=== PATIENT | female | born 2000 | race Caucasian/White ===

== ENCOUNTER 2020-12-11 22:35 | Emergency (ER) | payer MEDICAID ==
[2020-12-11] MEDS ORDERED: Sodium Chloride 0.9% 10 ML Syringe FLUSH PRN (22:51)
[2020-12-11] MEDS ORDERED: Ondansetron 4 MG/2 ML SDV IVPUSH STA (22:58)
[2020-12-11] MEDS ORDERED: Ketorolac 30 MG/ML SDV IVPUSH STA (22:58)
[2020-12-11] MEDS ORDERED: Sodium Chloride 0.9% 1,000 ML IV SCH (23:00)
[2020-12-11] MEDS ORDERED: Iopamidol 755 Mg/ML 100 ML Bottle IV ONE (23:59)
[2020-12-12] MEDS ORDERED: Ondansetron 4 MG/2 ML SDV IV PRN (01:03)
[2020-12-12] MEDS ORDERED: Morphine 2 MG/ML SYRINGE IVPUSH PRN (01:03)
[2020-12-12] MEDS ORDERED: Sodium Chloride 0.9% 1,000 ML IV SCH (01:15)
--- NOTE | 2020-12-12 01:29 | EDM.PDOC ---
ED HPI GENERAL MEDICAL PROBLEM - General Stated Complaint: ABDOMINAL PAIN Time Seen by Provider: 12/11/20 23:35 Source of Information: Reports: Patient History Limitations: Reports: No Limitations - History of Present Illness INITIAL COMMENTS - FREE TEXT/NARRATIVE: Patient presented to the ED because of abdominal pain over the LLQ and RLQ. The pain is sharp,8/10, with associated nausea but no vomiting. She also c/o dysuria x 1 days. there is no fever, chills, cough/cold. There is no diarrhea or constipation. - Related Data Allergies Allergy/AdvReac Type Severity Reaction Status Date / Time No Known Allergies Allergy Verified 12/12/20 00:06 Home Meds: Home Meds NK [No Known Home Meds] 12/12/20 [History] ED ROS GENERAL - Review of Systems Review Of Systems: See Below Constitutional: Reports: No Symptoms HEENT: Reports: No Symptoms Respiratory: Reports: No Symptoms Cardiovascular: Reports: No Symptoms Endocrine: Reports: No Symptoms GI/Abdominal: Reports: Abdominal Pain, Nausea Musculoskeletal: Reports: No Symptoms Skin: Reports: No Symptoms Neurological: Reports: No Symptoms Psychiatric: Reports: No Symptoms Hematologic/Lymphatic: Reports: No Symptoms ED EXAM, GI/ABD - Physical Exam Exam: See Below Exam Limited By: No Limitations General Appearance: Alert, No Apparent Distress Ears: Normal External Exam, Normal Canal Nose: Normal Inspection, Normal Mucosa Throat/Mouth: Normal Inspection, Normal Lips, Normal Teeth Head: Atraumatic, Normocephalic Neck: Normal Inspection, Supple, Non-Tender, Full Range of Motion Respiratory/Chest: No Respiratory Distress, Lungs Clear, Normal Breath Sounds, No Accessory Muscle Use, Chest Non-Tender Cardiovascular: Normal Peripheral Pulses, Regular Rate, Rhythm, No Edema, No Gallop, No JVD, No Murmur, No Rub GI/Abdominal Exam: Normal Bowel Sounds, Soft, No Organomegaly, Other (RLQ and LLQ tendernes) Back Exam: Normal Inspection Extremities: Normal Inspection Neurological: Alert, Oriented Psychiatric: Normal Affect Skin Exam: Warm, Dry Course - Vital Signs Text/Narrative:: Lab and Ct result was discussed with patient Case discussed with Dr Nelson Oconnell who is supposed to do the appendectomy @ 7am 12/12 but want patient to be transferred because she is Covid positive. Case discussed with Dr Amaris BROWN NS 1 L @ 125 ml /hr Zoayn 4.75 gm IV Q6 Code status-Full code Last Recorded V/S: Last Vital Signs Temp 36.3 C 12/12/20 06:35 Pulse 66 12/12/20 06:35 Resp 16 12/12/20 06:35 BP 104/70 12/12/20 06:35 Pulse Ox 100 12/12/20 06:35 - Orders/Labs/Meds Orders: Active Orders 24 hr Category Date Time Status Abdomen Pelvis w Cont [CT] Stat Exams 12/11/20 23:00 Taken CULTURE URINE [RM] Stat Lab 12/11/20 23:10 Received Saline Lock Insert [OM.PC] Routine Oth 12/11/20 22:51 Ordered Resuscitation Status Routine Resus Stat 12/12/20 01:03 Ordered Labs: Laboratory Tests 12/11/20 12/11/20 12/11/20 Range/Units 23:10 23:10 23:10 WBC 13.3 H (3.0-10.3) x10-3/uL RBC 4.69 (3.60-5.20) x10(6)uL Hgb 13.6 (11.4-15.5) g/dL Hct 41.5 (34.2-48.2) % MCV 88.5 (76.7-100.5) fL MCH 29.1 (23.9-33.9) pg MCHC 32.8 (31.9-34.8) g/dL RDW 13.5 (12.3-16.5) % Plt Count 197 (151-488) x10(3)uL MPV 9.6 (7.1-12.4) fL Neut % (Auto) 67.2 (30.8-76.2) % Lymph % (Auto) 21.6 (18.4-52.1) % [place] % (Auto) 9.3 (4.4-15.7) % Eos % (Auto) 1.6 (0.6-8.1) % Baso % (Auto) 0.3 (0.2-1.5) % Neut # (Auto) 8.9 H (1.5-6.3) x10-3/uL Lymph # (Auto) 2.9 (1.0-4.4) x10-3/uL [place] # (Auto) 1.2 H (0.3-1.0) x10-3/uL Eos # (Auto) 0.2 (0.0-0.8) x10-3/uL Baso # (Auto) 0.0 (0.0-0.1) x10-3/uL Sodium (135-145) mmol/L Potassium (3.5-5.3) mmol/L Chloride (100-110) mmol/L Carbon Dioxide (21-32) mmol/L BUN (7-18) mg/dL Creatinine (0.55-1.02) mg/dL Est Cr Clr Drug Dosing Estimated GFR (MDRD) (>60) BUN/Creatinine Ratio (9-20) Glucose (80-116) mg/dL Calcium (8.6-10.2) mg/dL Total Bilirubin (0.1-1.3) mg/dL AST (5-25) IU/L ALT (12-36) U/L Alkaline Phosphatase (56-112) IU/L Total Protein (6.0-8.0) g/dL Albumin (3.5-5.2) g/dL Globulin g/dL Albumin/Globulin Ratio Amylase (25-115) U/L Lipase (73-393) U/L Urine Color Yellow (YELLOW) Urine Appearance Slightly cloudy (CLEAR) Urine pH 5.0 (5.0-6.5) Ur Specific [place] 1.025 (1.010-1.025) Urine Protein Negative (NEGATIVE) mg/dL Urine Glucose (UA) Normal (NORMAL) mg/dL Urine Ketones 15 H (NEGATIVE) mg/dL Urine Occult Blood Negative (NEGATIVE) Urine Nitrite Negative (NEGATIVE) Urine Bilirubin Negative (NEGATIVE) Urine Urobilinogen Normal (NEGATIVE) mg/dL Ur Leukocyte Esterase Large H (NEGATIVE) Urine RBC 5-10 H (0-5) Urine WBC 30-40 H (0-5) Ur Epithelial Cells Moderate Urine Bacteria Few H (NS) Urine Mucus Moderate H (NS) Urine HCG, Qual Negative (NEGATIVE) SARS-CoV-2 RNA (RD) (NEGATIVE) 12/11/20 12/11/20 12/11/20 Range/Units 23:10 23:10 23:10 WBC (3.0-10.3) x10-3/uL RBC (3.60-5.20) x10(6)uL Hgb (11.4-15.5) g/dL Hct (34.2-48.2) % MCV (76.7-100.5) fL MCH (23.9-33.9) pg MCHC (31.9-34.8) g/dL RDW (12.3-16.5) % Plt Count (151-488) x10(3)uL MPV (7.1-12.4) fL Neut % (Auto) (30.8-76.2) % Lymph % (Auto) (18.4-52.1) % [place] % (Auto) (4.4-15.7) % Eos % (Auto) (0.6-8.1) % Baso % (Auto) (0.2-1.5) % Neut # (Auto) (1.5-6.3) x10-3/uL Lymph # (Auto) (1.0-4.4) x10-3/uL [place] # (Auto) (0.3-1.0) x10-3/uL Eos # (Auto) (0.0-0.8) x10-3/uL Baso # (Auto) (0.0-0.1) x10-3/uL Sodium 143 (135-145) mmol/L Potassium 3.8 (3.5-5.3) mmol/L Chloride 103 (100-110) mmol/L Carbon Dioxide 28 (21-32) mmol/L BUN 16 (7-18) mg/dL Creatinine 0.8 (0.55-1.02) mg/dL Est Cr Clr Drug Dosing TNP Estimated GFR (MDRD) > 60 (>60) BUN/Creatinine Ratio 20.0 (9-20) Glucose 93 (80-116) mg/dL Calcium 8.5 L (8.6-10.2) mg/dL Total Bilirubin 0.3 (0.1-1.3) mg/dL AST 17 (5-25) IU/L ALT 26 (12-36) U/L Alkaline Phosphatase 79 (56-112) IU/L Total Protein 7.8 (6.0-8.0) g/dL Albumin 3.9 (3.5-5.2) g/dL Globulin 3.9 g/dL Albumin/Globulin Ratio 1.0 Amylase 51 (25-115) U/L Lipase 45 L (73-393) U/L Urine Color (YELLOW) Urine Appearance (CLEAR) Urine pH (5.0-6.5) Ur Specific [place] (1.010-1.025) Urine Protein (NEGATIVE) mg/dL Urine Glucose (UA) (NORMAL) mg/dL Urine Ketones (NEGATIVE) mg/dL Urine Occult Blood (NEGATIVE) Urine Nitrite (NEGATIVE) Urine Bilirubin (NEGATIVE) Urine Urobilinogen (NEGATIVE) mg/dL Ur Leukocyte Esterase (NEGATIVE) Urine RBC (0-5) Urine WBC (0-5) Ur Epithelial Cells Urine Bacteria (NS) Urine Mucus (NS) Urine HCG, Qual (NEGATIVE) SARS-CoV-2 RNA (RD) (NEGATIVE) 12/12/20 12/12/20 12/12/20 Range/Units 00:59 06:40 06:40 WBC 10.1 (3.0-10.3) x10-3/uL RBC 4.21 (3.60-5.20) x10(6)uL Hgb 12.4 (11.4-15.5) g/dL Hct 37.5 (34.2-48.2) % MCV 89.0 (76.7-100.5) fL MCH 29.4 (23.9-33.9) pg MCHC 33.1 (31.9-34.8) g/dL RDW 13.3 (12.3-16.5) % Plt Count 171 (151-488) x10(3)uL MPV 9.5 (7.1-12.4) fL Neut % (Auto) 61.2 (30.8-76.2) % Lymph % (Auto) 27.4 (18.4-52.1) % [place] % (Auto) 9.6 (4.4-15.7) % Eos % (Auto) 1.5 (0.6-8.1) % Baso % (Auto) 0.3 (0.2-1.5) % Neut # (Auto) 6.2 (1.5-6.3) x10-3/uL Lymph # (Auto) 2.8 (1.0-4.4) x10-3/uL [place] # (Auto) 1.0 (0.3-1.0) x10-3/uL Eos # (Auto) 0.2 (0.0-0.8) x10-3/uL Baso # (Auto) 0.0 (0.0-0.1) x10-3/uL Sodium 145 (135-145) mmol/L Potassium 3.8 (3.5-5.3) mmol/L Chloride 108 D (100-110) mmol/L Carbon Dioxide 30 (21-32) mmol/L BUN 12 (7-18) mg/dL Creatinine 0.8 (0.55-1.02) mg/dL Est Cr Clr Drug Dosing 115.28 Estimated GFR (MDRD) > 60 (>60) BUN/Creatinine Ratio 15.0 (9-20) Glucose 99 (80-116) mg/dL Calcium 7.9 L (8.6-10.2) mg/dL Total Bilirubin (0.1-1.3) mg/dL AST (5-25) IU/L ALT (12-36) U/L Alkaline Phosphatase (56-112) IU/L Total Protein (6.0-8.0) g/dL Albumin (3.5-5.2) g/dL Globulin g/dL Albumin/Globulin Ratio Amylase (25-115) U/L Lipase (73-393) U/L Urine Color (YELLOW) Urine Appearance (CLEAR) Urine pH (5.0-6.5) Ur Specific [place] (1.010-1.025) Urine Protein (NEGATIVE) mg/dL Urine Glucose (UA) (NORMAL) mg/dL Urine Ketones (NEGATIVE) mg/dL Urine Occult Blood (NEGATIVE) Urine Nitrite (NEGATIVE) Urine Bilirubin (NEGATIVE) Urine Urobilinogen (NEGATIVE) mg/dL Ur Leukocyte Esterase (NEGATIVE) Urine RBC (0-5) Urine WBC (0-5) Ur Epithelial Cells Urine Bacteria (NS) Urine Mucus (NS) Urine HCG, Qual (NEGATIVE) SARS-CoV-2 RNA (RD) Positive H (NEGATIVE) Meds: Medications Discontinued Medications Generic Name Dose Route Start Last Admin Trade Name Freq PRN Reason Stop Dose Admin Sodium Chloride 1,000 mls @ 999 mls/hr 12/11/20 23:00 12/11/20 23:31 Normal Saline IV 999 mls/hr ASDIRECTED GABBIE Administration Sodium Chloride 1,000 mls @ 125 mls/hr 12/12/20 01:15 12/12/20 02:00 Normal Saline IV 125 mls/hr ASDIRECTED GABBIE Administration Piperacillin Sod/Tazobactam 100 mls @ 200 mls/hr 12/12/20 01:00 12/12/20 06:53 Sod 4.5 gm/ Sodium Chloride IV 200 mls/hr Q6H GABBIE Administration Iopamidol 100 ml 12/11/20 23:59 12/12/20 00:14 Iopamidol 755 Mg/Ml 100 Ml Bottle IV 12/12/20 00:00 100 ml . DIRECTED ONE Administration Ketorolac Tromethamine 30 mg 12/11/20 22:58 12/11/20 23:34 Ketorolac 30 Mg/Ml Sdv IVPUSH 12/11/20 22:59 30 mg NOW STA Administration Morphine Sulfate 2 mg 12/12/20 01:03 12/12/20 07:24 Morphine 2 Mg/Ml Syringe IVPUSH 2 mg Q2H PRN Administration Pain (severe 7-10) Ondansetron HCl 4 mg 12/11/20 22:58 12/11/20 23:32 Ondansetron 4 Mg/2 Ml Sdv IVPUSH 12/11/20 22:59 4 mg NOW STA Administration Ondansetron HCl 4 mg 12/12/20 01:03 Ondansetron 4 Mg/2 Ml Sdv IV Q4H PRN Nausea/Vomiting Sodium Chloride 10 ml 12/11/20 22:51 Sodium Chloride 0.9% 10 Ml Syringe FLUSH ASDIRECTED PRN Keep Vein Open Departure - Departure Time of Disposition: 01:40 Disposition: DC/Tfer to Acute Hospital 02 Condition: Good Clinical Impression: Appendicitis, UTI (urinary tract infection) - Discharge Information Referrals: PCP,Not In Area [Primary Care Provider] - Forms: ED Department Discharge Sepsis Event Note (ED) - Focused Exam Vital Signs: Vital Signs Temp Pulse Resp BP Pulse Ox 12/12/20 06:35 36.3 C 66 16 104/70 100 12/12/20 01:10 36.4 C 66 18 106/71 97 12/11/20 22:45 36.6 C 91 18 107/83 97 - My Orders Last 24 Hours: My Active Orders 12/11/20 22:51 Saline Lock Insert [OM.PC] Routine 12/11/20 23:00 Abdomen Pelvis w Cont [CT] Stat 12/11/20 23:10 CULTURE URINE [RM] Stat 12/12/20 01:03 Resuscitation Status Routine - Assessment/Plan Last 24 Hours: My Active Orders 12/11/20 22:51 Saline Lock Insert [OM.PC] Routine 12/11/20 23:00 Abdomen Pelvis w Cont [CT] Stat 12/11/20 23:10 CULTURE URINE [RM] Stat 12/12/20 01:03 Resuscitation Status Routine
[2020-12-12] MEDS: Piperacillin/Tazobactam 4.5 GM in Sodium Chloride 0.9% 100 ML IV SCH ×2 (02:04→06:53)
== END 2020-12-12 07:35 ==
LOC: FB.ED 22:35 → FB.MS 12-12 01:04 → FB.SDS 12-12 01:04 → FB.ED 12-12 07:35
DX: N39.0 Urinary tract infection, site not specified (principal); K37 Unspecified appendicitis; Z20.822 Contact with and (suspected) exposure to COVID-19
CPT/HCPCS: 36415; 74177; 80048; 80053; 81001; 81025; 82150; 83690; 85025; 87086; 87088; 87186; J1885; J2270; J2405; J2543; J7030; Q9967; U0002